=== PATIENT | male | born 1975 | race Caucasian/White ===

== ENCOUNTER → 2016-08-11 | Outpatient (CLI) | payer OTHER ==
[~2016-08-11] MED LIST: GADOBUTROL 7.5 MMOL/7.5 ML VIAL INT ART ONE; IOHEXOL 300 MG/ML 50 ML VIAL. INT ART ONE; LIDOCAINE 1% Multi-Dose 20 ML VIAL. ID ONE
--- NOTE | 2016-08-11 15:20 | KCIC ---
PROCEDURE MR arthrogram of the right shoulder HISTORY Right shoulder pain. Injury 2012. Suspect labral tear. COMPARISON None TECHNIQUE Intra-articular contrast injected prior to the scan, and reported separately. The standard 4 plane sequences were obtained including ABER positioning. FINDINGS Acromioclavicular joint is mildly degenerative. No evidence of rotator cuff tear. Slight tendinosis signal at the anterior supraspinatus tendon. No significant fluid or contrast in the subdeltoid bursa. There is some minimal signal at the superior labrum, at 12 o'clock, coronal series 6, image 11. There is mild heterogeneity of the anteroinferior labrum with irregular signal but no clear-cut detachment or separation. No acute articular cartilage defect. No HAGL lesion. Biceps tendon is intact. No bone lesion or acute fracture. No acute soft tissue abnormality. IMPRESSION 1. Mild rotator cuff tendinosis without evidence of a tear. 2. Small contrast defect at the superior labrum, could represent a tiny tear. 3. Mild heterogeneity of the anteroinferior labrum, but without clear-cut detachment or separation. Electronically signed by: Alberto Mejía MD (Aug 11, 2016 15:18:48)
--- NOTE | 2016-08-11 15:21 | KCIC ---
PROCEDURE: Right shoulder injection using fluoroscopic guidance, prior to MR. HISTORY: Shoulder pain. TECHNIQUE: The procedure was explained to the patient as were potential risks, including among others infection, bleeding or allergic reaction. All questions were answered. Informed written and verbal consent was obtained. The shoulder was prepped and draped in the usual sterile manner. Following administration of local anesthetic, a 22-gauge needle was advanced into the anterior shoulder. Following negative aspiration, 12 cc of a solution of 5cc Omnipaque-300 contrast, 5 cc 1% lidocaine, 10 cc normal saline, and 0.1 cc gadolinium was injected without difficulty. The needle was removed. There was good hemostasis at the injection site. The patient left in stable condition without immediate complication. The patient was given postprocedural instructions, and instructed to contact us or the ER if there are any complications. A single spot image is obtained. FLUOROSCOPY TIME: 26 seconds Electronically signed by: Alberto Mejía MD (Aug 11, 2016 15:19:32)
== END | disposition home or self-care (01) ==
LOC: KCIC 12:51
PROVIDERS: ATTEND Physician Assistant
DX: M25.511 Pain in right shoulder (principal)
CPT/HCPCS: 73040; 73222; Q9967; A9585